=== PATIENT | male | born 1960 | race Caucasian/White ===

== ENCOUNTER → 2023-06-13 08:19 | Outpatient (REF) | payer BC, SELFPAY | LOC: RCS 08:19 | PROVIDERS: ATTENDING PHYSICIAN Internal Medicine Cardiovascular Disease; FAMILY PHYSICIAN Internal Medicine | DX: R93.1 Abnormal findings on diagnostic imaging of heart and coronary circulation (principal); R06.09 Other forms of dyspnea | CPT/HCPCS: 93017; 93350 ==

== ENCOUNTER 2024-01-17 18:31 | Emergency (ER) | payer BC, SELFPAY ==
[2024-01-17 18:37] VITALS: BP 118/81
--- NOTE | 2024-01-17 19:45 | ED.GENMED ---
History of Present Illness
General
Chief Complaint: Abnormal Lab Value
Source: patient, spouse and other (Outpatient lab work from yesterday)
Exam Limitations: none
Time Seen by Provider: 01/17/24 19:16
Nursing documentation reviewed up to this point in time: agreed with
History of Present Illness
History of Present Illness:
The patient is a very nice 63-year-old man with a past medical history of lupus. Patient reports that he has been experiencing 2 weeks of generalized weakness, fatigue, night sweats, decreased appetite, occasional right upper abdominal pain, and
diffuse joint pain. Patient reports that he is generally very active and lifts weights at the gym but does not have the strength to do so. He reports that when he walks around, sometimes he feels short of breath. He denies definite fever or chest
pain. He denies cough. He had outpatient blood work done yesterday through his claims representative which showed a slight elevation of his kidney function above baseline as well as his liver function test. Patient's creatinine yesterday was 1.48 and
his LFTs are mildly elevated in the 60s and 70s range. In addition, he has a mild elevation of his total CK levels. Patient reports he noticed the rash yesterday all over his body. It is not painful or itchy. His claims representative sent him to the
emergency department to make sure that there is 'nothing significant going on' because he would likely be started on steroids.
Past History
Past History
ED Past Medical History: Other (Lupus, fatty liver)
ED Past Surgical History: None
Social History
Tobacco: Non-smoker
Alcohol: None
Drug: None
Personal:
Living: with family
Employment: Employed
Family History
Family History: Other
Review of Systems
Review of Systems
Allergies reviewed?: Yes
Other source history: family
All Other Systems: ROS reviewed and negative except as documented in HPI and ROS
Constitutional: Reports fatigue and night sweats
EENT: Reports no symptoms
Respiratory: Reports trouble breathing
Cardiac: Reports no symptoms
ABD/GI: Reports abdominal pain and anorexia
: Reports no symptoms
Musculoskeletal: Reports joint pain and muscle stiffness
Skin: Reports rash
Neurological: Reports headache
Endocrine: Reports no symptoms
Hematologic/Lymphatic: Reports no symptoms
Psychiatric: Reports no symptoms
Phy Exam
Physical Exam
Physical Exam:
Physical Exam
General: no apparent distress, not acutely ill, nontoxic
Neck: supple. no meningeal signs. normal posterior pharynx
Heart: s1/s2 regular rate and rhythm, no murmur. equal radial pulses.
Lungs: no acute respiratory distress. clear bilaterally. Breathing comfortably
Abdomen: normal bowel sounds. not tender. no CVAT
Neuro: alert and oriented. no focal neurological deficits
Skin: Fine macular rash on chest back and extremities. No petechiae
Psychiatric: well kept. interactive and cooperative
Extremities: no edema. no calf tenderness. negative homans. good distal pulses
Course
Orders/Labs/Results
Orders:
Orders
01/17/24 19:41
CR Chest - 2 Views Urgent
Comment:
Reason For Exam: fatigue, SOB for 2 weeks
01/17/24 19:42
US Abdomen Complete/Upper Urgent
Comment:
Reason For Exam: RUQ pain, increased LFTs
01/17/24 20:25
Creatinine Urgent
LFT [Ixpok-Nmed-Eknoxmx] Urgent
Lyme Progressive Urgent
Monotest Urgent
Total CK [Creatine Phosphokinase] Urgent
01/17/24 21:54
Prednisone [Deltasone] 20 mg PO NOW STA
Abnormal Lab Results
01/17/24
20:25
AST 75 H U/L
(17-59)
ALT 64 H U/L
(0-50)
Creatine Kinase 259 H U/L
(55-170)
01/17/24 20:25
Vital Signs
Initial and Last Documented VS:
Initial Vital Signs
Temp Pulse Resp BP Pulse Ox
99.1 F 95 16 118/81 99
01/17/24 18:37 01/17/24 18:37 01/17/24 18:37 01/17/24 18:37 01/17/24 18:37
Last Documented Vital Signs
Temp Pulse Resp BP Pulse Ox
99.1 F 77 19 110/79 99
01/17/24 18:37 01/17/24 20:30 01/17/24 20:30 01/17/24 20:13 01/17/24 18:37
MDM/Problems Addressed
Differential Diagnosis Includes:
Lupus exacerbation, Lyme's, mono
MDM/Problems Addressed:
Patient presents with subacute generalized weakness, body aches, fatigue and night sweats
Chronic conditions affecting care:
Lupus
Acute Exacerbation and/or Progression of Chronic Illness:
Patient's presentation may be due to acute exacerbation of chronic lupus
*Radiology
Radiology exam reviewed: preliminary read by ED provider (Chest x-ray reviewed by me. No acute disease) and radiology read reviewed
*Pulse Oximetry
Patient hypoxic: no
*EKG
Interpreted by ED Provider?: NA
*Head Of [employer] Interpretation
Rate: normal
Interpretation: normal
Rhythm: sinus
*Critical Care Note
Total Time (30-74mins, 75-104mins- exclusive of procedures): Not Applicable
Data Reviewed
Review of Other/Old Records Reveals: Labs (Outpatient labs reviewed by me which patient brought into the ED from 01/16/2024)
Source: patient and spouse
Patient Management
Discussion with other providers: Other (Discussed case with patient's rheumatology office with claims representative medication assistant at [phone]. She recommended starting at 20 mg and tapering down 5 mg every 3 days for possible autoimmune flare versus viral
illness)
Update Note
Update Note:
10:00 PM patient continues to look well nontoxic. He is well-hydrated. Chest x-ray shows no sign of pneumonia. It is doubtful he has sepsis given he has a normal blood pressure, no fever and a normal white blood cell count. His urine was just
checked yesterday and I reviewed it and it shows no sign of infection. His creatinine is now improved since yesterday. His LFTs are still mildly elevated. I discussed the case with on-call claims representative who recommended prednisone taper for
possible viral illness versus autoimmune exacerbation. Patient has an appointment with his claims representative this Saturday so we will have close follow-up.
ED Attending Note
-
Portions of this chart may have been created with voice recognition software.� Occasional wrong word or��sound alike� substitutions may have occurred due to the inherent limitations of voice recognition software.
Discharge Plan
Departure
Patient Disposition: Home (Routine Discharge)
Date of Disposition: 01/17/24
Time of Disposition: 21:54
Patient with high blood pressure during this ER visit?: No
Condition: Good
Covid-19: Not Applicable
Discharge Problem:
Fatigue, Body aches, LFT elevation
Instructions: Liver Function Test, Lyme Disease Test, Fatigue ED
Prescriptions:
New
prednisone 5 mg tablet
5 mg PO DAILY 11 Days Qty: 26 0RF
Rx Instructions:
Take 20 mg on day 1 and 2
Take 15 mg on day 3, 4, and 5
Take 10 mg on day 6, 7, and 8
Take 5 mg on day 9, 10 and 11
Referrals:
Ravin Ribeiro MD [Family Provider] -
Activity Restrictions/Additional Instructions:
Your symptoms may be due to an autoimmune flare or a viral illness. Your monotest came back negative. Your chest x-ray looks clear and there is no sign of a lung infection. Your ultrasound of your abdomen shows a normal-appearing liver, pancreas
and gallbladder. Your creatinine (kidney function) is in the normal range. Your liver tests are slightly elevated.
Please take your next dose of prednisone tomorrow at around noon. Please have repeat blood work done in about a week with your primary care doctor or your claims representative. You were tested for Lyme's disease. Results will take 2 to 3 days to come
back for this. Your doctor can call to get results.
Interventions
Interventions:
*Risk Screen - Suicide Last Done: 01/17/24 20:21
*General Assessment Last Done: 01/17/24 20:20
ED- Fall Risk Assessment Last Done: 01/17/24 20:21
*ED COVID-19 Vaccine History Last Done: 01/17/24 20:21
Discharge Date and Time
Print Language: BELARUSIAN
[2024-01-17 20:13] VITALS: BP 110/79
[2024-01-17 20:49] LABS: ALT (SGPT) 64 U/L (0-50); AST (SGOT) 75 U/L (17-59); Albumin 3.8 g/dl (3.5-5.0); Alkaline Phosphatase 54 U/L (38-126); Creatine Phosphokinase 259 U/L (55-170); Direct Bilirubin 0.3 mg/dl (0.0-0.4); Total Bilirubin 0.9 mg/dl (0.2-1.3); Total Protein 6.6 g/dl (6.3-8.2)
[2024-01-17 20:56] LABS: Monotest Negative (Negative)
[2024-01-17] MEDS: DELTASONE 20 MG PO (22:00)
[2024-01-20 13:45] LABS: Lyme Antibody Screen, EIA Negative (Negative)
== END 2024-01-17 22:24 | disposition home or self-care (01) ==
LOC: EMR 18:31
PROVIDERS: EMERGENCY PHYSICIAN Emergency Medicine; FAMILY PHYSICIAN Internal Medicine
DX: R53.83 Other fatigue (principal); R53.1 Weakness; R10.11 Right upper quadrant pain; R61 Generalized hyperhidrosis; R06.02 Shortness of breath; R21 Rash and other nonspecific skin eruption; R51.9 Headache, unspecified; R94.5 Abnormal results of liver function studies; M32.9 Systemic lupus erythematosus, unspecified; K76.0 Fatty (change of) liver, not elsewhere classified; Z88.8 Allergy status to other drugs, medicaments and biological substances
CPT/HCPCS: 99284; 71046; 76700; 80076; 82550; 82565; 86308; 86618

== ENCOUNTER → 2025-04-19 14:38 | Outpatient (REF) | payer BC, SELFPAY | LOC: HWRAD 14:38 | PROVIDERS: FAMILY PHYSICIAN Internal Medicine | DX: R79.89 Other specified abnormal findings of blood chemistry (principal) | CPT/HCPCS: 76770 ==